=== PATIENT | female | born 1995 | race Caucasian/White ===

== ENCOUNTER 2023-06-13 20:52 | Emergency (ER) | payer BC, SELFPAY ==
[2023-06-13] MEDS ORDERED: Rabies Vaccine Human 2.5 UNITS VIAL IM ONE (22:30)
[2023-06-13] MEDS ORDERED: Rabies Immune Globulin/PF 300 UNITS/ML VIAL IM SCH (22:30)
[2023-06-13] MEDS ORDERED: Amoxicillin/Potassium Clav 875 MG TAB ONE (22:47)
== END 2023-06-13 23:57 | disposition home or self-care (01) ==
LOC: CSHERS 20:52
DX: S81.851A Open bite, right lower leg, initial encounter (principal); S81.852A Open bite, left lower leg, initial encounter; S41.151A Open bite of right upper arm, initial encounter; S81.831A Puncture wound without foreign body, right lower leg, initial encounter; S81.832A Puncture wound without foreign body, left lower leg, initial encounter; S41.141A Puncture wound with foreign body of right upper arm, initial encounter; S40.211A Abrasion of right shoulder, initial encounter; S50.311A Abrasion of right elbow, initial encounter; S80.811A Abrasion, right lower leg, initial encounter; W55.01XA Bitten by cat, initial encounter; Z23 Encounter for immunization
CPT/HCPCS: 90375; 90471; 90675; 96372

== ENCOUNTER → 2023-06-17 | Day surgery (SDC) | payer BC ==
[~2023-06-17] MED LIST: Rabies Vaccine Human 2.5 UNITS VIAL IM ONE
== END ==
LOC: CSHER/OP 13:56
PROVIDERS: ATTEND Emergency Medicine
DX: Z23 Encounter for immunization (principal)
CPT/HCPCS: 90675

== ENCOUNTER → 2023-06-21 | Day surgery (SDC) | payer BC | LOC: CSHER/OP 14:25 | PROVIDERS: ATTEND Emergency Medicine | DX: Z23 Encounter for immunization (principal) | CPT/HCPCS: 90675 ==

== ENCOUNTER → 2023-06-28 | Day surgery (SDC) | payer BC | LOC: CSHER/OP 13:52 | PROVIDERS: ATTEND Emergency Medicine | DX: Z23 Encounter for immunization (principal) | CPT/HCPCS: 90675 ==